=== PATIENT | female | born 1960 | race Caucasian/White ===

== ENCOUNTER 2018-12-19 21:33 | Emergency (ER) | payer OTHER ==
[~2018-12-19] VITALS: Ht 157.5 cm; Wt 77.2 kg
[~2018-12-19 21:33] MED LIST: CYCL10TA7 PO; IBUP800T48 PO; OMEP40CA6 PO
[2018-12-19 21:51] VITALS: Ht 157.5 cm; Wt 77.2 kg
[2018-12-19] MEDS ORDERED: KETOROLAC 30 MG INJ IM STA (22:19)
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
[2018-12-19] MEDS ORDERED: FAMOTIDINE 20 MG TAB PO ONE (22:30)
[2018-12-19] MEDS ORDERED: CYCLOBENZAPRINE 10 MG TAB PO ONE (22:30)
[2018-12-19 23:56] VITALS: BP 140/63; PULSE 55; RESP 18
[2018-12-20] MEDS ORDERED: NICARDipine HCL 30 MG CAPSULE PO ONE
[2018-12-20] MEDS ORDERED: HYDROCODONE/APAP (5/325) TAB PO ONE
== END 2018-12-20 00:15 | disposition home or self-care (01) ==
LOC: FTE 21:33
DX: S10.93XA Contusion of unspecified part of neck, initial encounter (principal); S20.219A Contusion of unspecified front wall of thorax, initial encounter; S40.011A Contusion of right shoulder, initial encounter; V43.52XA Car driver injured in collision with other type car in traffic accident, initial encounter
CPT/HCPCS: 71046; 72040; 73030; 96372; J1885; Z7502; Z7610

== ENCOUNTER 2019-01-26 12:48 | Inpatient (IN) | payer OTHER ==
[~2019-01-26] VITALS: Ht 152.4 cm; Wt 76.6 kg
[~2019-01-26 12:48] MED LIST changes: +ACET650S13 PR; +ASPI-817 PO
[2019-01-26] MEDS ORDERED: LIDOCAINE/MYLANTA 40 ML BTL PO STA (14:02)
[2019-01-26] MEDS ORDERED: SOD CHLORIDE 0.9% 1,000 ML IV STA (14:02)
[2019-01-26] MEDS ORDERED: KETOROLAC 15 MG INJ IV STA (14:02)
[2019-01-26] MEDS ORDERED: ONDANSETRON 4 MG INJ IV STA (14:02)
[2019-01-26] MEDS ORDERED: BELLADONNA/PHENOBARBITAL TAB PO STA (14:02)
[2019-01-26] MEDS ORDERED: morphine 2 MG INJ IV PRN (18:30)
[2019-01-26] MEDS ORDERED: ONDANSETRON 4 MG INJ IV PRN (18:30)
[2019-01-26] MEDS ORDERED: NACL 0.9% 3 ML SYG IV SCH (18:30)
[2019-01-26] MEDS ORDERED: DOCUSATE SODIUM 100 MG CAP PO PRN (18:30)
[2019-01-26] MEDS ORDERED: BISACODYL 10 MG SUPP PR PRN (18:30)
[2019-01-26] MEDS ORDERED: ACETAMINOPHEN 650 MG SUPP PR PRN (18:30)
[2019-01-26] MEDS ORDERED: FAMOTIDINE 20 MG INJ IV SCH (18:30)
[2019-01-26] MEDS ORDERED: HYDROCODONE/APAP (5/325) TAB PO PRN (18:30)
[2019-01-26] MEDS ORDERED: ACETAMINOPHEN 325 MG TAB PO PRN (18:30)
[2019-01-26 19:00] VITALS: BP 133/62; PULSE 65; RESP 16
[2019-01-26] MEDS ORDERED: CIPROFLOXACIN 400MG/D5W 200 ML ONE (19:35)
[2019-01-26] MEDS ORDERED: FAMOTIDINE 20 MG INJ ONE (19:35)
[2019-01-26] MEDS ORDERED: metroNIDAZOLE 500 MG/NS (PMX) 100 ML IVPB ONE (19:35)
[2019-01-26 19:43] VITALS: Ht 152.4 cm; Wt 76.6 kg
[2019-01-26] MEDS: SOD CHLORIDE 0.9% 1,000 ML IV SCH (19:57)
[2019-01-26] MEDS: FAMOTIDINE 20 MG INJ IV SCH (20:00)
[2019-01-26] MEDS: CIPROFLOXACIN 400MG/D5W 200 ML IVPB SCH (20:02)
[2019-01-26 20:33] VITALS: BP 115/58; PULSE 64; RESP 16
[2019-01-26] MEDS: metroNIDAZOLE 500 MG/NS (PMX) 100 ML IVPB SCH (21:09)
[2019-01-27 02:38] VITALS: BP 101/55; PULSE 57; RESP 16
[2019-01-27] MEDS: SOD CHLORIDE 0.9% 1,000 ML IV SCH ×2 (05:39→12:28)
[2019-01-27] MEDS: metroNIDAZOLE 500 MG/NS (PMX) 100 ML IVPB SCH (05:41)
[2019-01-27 08:00] VITALS: BP 105/63; PULSE 74; RESP 20
[2019-01-27] MEDS: FAMOTIDINE 20 MG INJ IV SCH (09:27)
[2019-01-27] MEDS: CIPROFLOXACIN 400MG/D5W 200 ML IVPB SCH (09:28)
[2019-01-27 14:00] VITALS: BP 132/68; PULSE 82; RESP 18
== END 2019-01-27 14:59 | disposition home or self-care (01) | DRG 446 ==
LOC: E/R 12:48 → PP2 16:39
PROVIDERS: ADMIT Internal Medicine; ATTEND Internal Medicine
DX: K80.20 Calculus of gallbladder without cholecystitis without obstruction (principal); E66.9 Obesity, unspecified; Z68.33 Body mass index [BMI] 33.0-33.9, adult; Z79.82 Long term (current) use of aspirin
CPT/HCPCS: 36415; 71045; 74176; 76705; 80053; 80061; 81025; 83036; 83690; 83735; 84100; 84443; 85025; 85610; 93005; 96374; 96375; J0744; J1885; J2405; J7030